=== PATIENT | female | born 1945 | race Caucasian/White ===

== ENCOUNTER → 2023-09-27 | Outpatient (CLI) | payer MEDICARE, OTHER | END | disposition home or self-care (01) | LOC: RESCLI 09:45 | PROVIDERS: ATTEND Student in an Organized Health Care Education/Training Program | DX: J45.909 Unspecified asthma, uncomplicated (principal); I48.91 Unspecified atrial fibrillation; C91.10 Chronic lymphocytic leukemia of B-cell type not having achieved remission; I10 Essential (primary) hypertension; E03.9 Hypothyroidism, unspecified; E78.5 Hyperlipidemia, unspecified; K21.9 Gastro-esophageal reflux disease without esophagitis; Z88.8 Allergy status to other drugs, medicaments and biological substances; Z98.890 Other specified postprocedural states; Z79.899 Other long term (current) drug therapy ==